=== PATIENT | female | born 1975 | race Caucasian/White ===

== ENCOUNTER 2016-11-15 18:23 | Emergency (ER) | payer OTHER ==
[~2016-11-15 18:23] MED LIST: ACYCLOVIR PO; BACTRIM DS TABL1 TA1 PO; BACTRIM DS TABL1 TAB PO; DARVOCET-N 1001 TAB PO; HYDROCODON-ACE1 EAC7 PO
== END 2016-11-15 22:52 | disposition home or self-care (01) ==
LOC: CED 18:23 → CFTX 18:23
DX: J02.0 Streptococcal pharyngitis (principal); R59.0 Localized enlarged lymph nodes; F17.210 Nicotine dependence, cigarettes, uncomplicated; Z87.442 Personal history of urinary calculi; Z88.1 Allergy status to other antibiotic agents; Z88.5 Allergy status to narcotic agent; Z88.8 Allergy status to other drugs, medicaments and biological substances
CPT/HCPCS: 87651; 99283; J1100

== ENCOUNTER 2017-02-05 23:43 | Emergency (ER) | payer OTHER ==
[~2017-02-05] VITALS: Ht 165.1 cm; Wt 52.2 kg
--- NOTE | ~2017-02-05 | CR150 ---
[facility] A Service of [facility] RADIOLOGY TEXT RESULTS PATIENT: DM RAMIREZ LOCATION: [facility] : 79 UNIT #: [id number] AGE: [address]: RONEN MILAN APRN SEX: F ORDER DR: [id number] [facility] [address] [place], [place] [address] [id number] E MR#: [id number] Acc #: [id number] NAME: DM RAMIREZ : 1975 SEX: F STUDY DATE/TIME: 02/06/2017 2:43 UNIT: JAMIN ROOM: STUDY DESCRIPTION: CR Hip Min 2 Views Lt Attending Physician: Ronen Milan Aprn Ordering Physician: Ronen Milan Aprn Primary Care Physician: No Primary Care Physician MEDICAL IMAGING REPORT This report is preliminary unless electronic signature is present EXAM Pelvis and left hip series. INDICATIONS Left hip pain today. PROCEDURE Frontal view of the pelvis and a frog-leg lateral view of the left hip. COMPARISON None. FINDINGS No acute fracture. No dislocation. IMPRESSION No acute findings. Dictated by... Hernesto Murdock M.D. THIS IS AN ELECTRONICALLY VERIFIED REPORT Hernesto Murdock M.D. at 02/10/2017 8:55 AM DIANA/[place] TD: 02/06/2017 11:13 JOB #: [id number] MEDICAL IMAGING REPORT Page 1 of 1 COPY
== END 2017-02-06 03:53 | disposition home or self-care (01) ==
LOC: CED 23:43
DX: S76.112A Strain of left quadriceps muscle, fascia and tendon, initial encounter (principal); F17.210 Nicotine dependence, cigarettes, uncomplicated; Z87.442 Personal history of urinary calculi; Z88.5 Allergy status to narcotic agent; Z88.8 Allergy status to other drugs, medicaments and biological substances; X58.XXXA Exposure to other specified factors, initial encounter
CPT/HCPCS: 73502; 96372; 99283; J1885